=== PATIENT | male | born 1965 | race Caucasian/White ===

== ENCOUNTER → 2016-08-02 | Outpatient (REF) | payer BC ==
[2016-08-02 17:33] LABS: BASO % 0.5 % (0.0-1.0); EOS # 0.1 K/mm3 (0.0-0.50); EOS % 1.6 % (0.0-3.0); LARGE UNSTAINED CELL # 0.1 K/mm3 (0.0-0.4); LARGE UNSTAINED CELL % 0.9 % (0.0-4.0); LYMPH # 1.3 K/mm3 (1.5-4.5); LYMPH % 17.6 % (24.0-44.0); MEAN CORPUSCULAR HGB CONC 34.9 g/dl (32.0-36.5); MONO # 0.4 K/mm3 (0.0-0.8); MONO % 4.9 % (0.0-5.0); NEUTROPHILS # 5.3 K/mm3 (1.8-7.7); NEUTROPHILS % 74.6 % (36.0-66.0); PLATELET COUNT, AUTOMATED 269 k/mm3 (150-450); RED CELL DISTRIBUTION WIDTH 12.5 % (11.5-14.5); WHITE BLOOD COUNT 7.1 K/mm3 (4.0-10.0)
[2016-08-02 18:56] LABS: ALBUMIN 4.4 GM/DL (3.2-5.2); PERCENT SATURATION 25.1 % (19.7-37.4)
== END ==
LOC: M LABDRAWC 16:35
PROVIDERS: ATTEND Orthopaedic Surgery
DX: Z01.818 Encounter for other preprocedural examination (principal); M16.11 Unilateral primary osteoarthritis, right hip; M25.551 Pain in right hip

== ENCOUNTER → 2018-08-31 | Outpatient (REF) | payer OTHER | LOC: M SFHCCLAY 11:14 | PROVIDERS: ATTEND Family Medicine | DX: K92.1 Melena (principal); M25.571 Pain in right ankle and joints of right foot ==

== ENCOUNTER → 2018-09-28 | Outpatient (REF) | payer OTHER ==
[2018-09-28 13:36] LABS: ALBUMIN 4.5 GM/DL (3.2-5.2); ALT/SGPT 38 U/L (12-78); BILIRUBIN,TOTAL 0.5 MG/DL (0.2-1.0); BLOOD UREA NITROGEN 23 MG/DL (7-18); CALCIUM LEVEL 9.1 MG/DL (8.5-10.1); CARBON DIOXIDE LEVEL 26 MEQ/L (21-32); CHLORIDE LEVEL 103 MEQ/L (98-107); CHOLESTEROL LEVEL 261 MG/DL (<200); CHOLESTEROL RISK RATIO 3.625 (<5); CREATININE FOR GFR 1.04 MG/DL (0.70-1.30); GLOMERULAR FILTRATION RATE > 60.0 (>56); GLUCOSE, FASTING 94 MG/DL (70-100); HDL CHOLESTEROL 72 MG/DL (>40); LDL CHOLESTEROL 166 MG/DL (<100); NON-HDL-C 189 MG/DL; POTASSIUM SERUM 4.4 MEQ/L (3.5-5.1); SODIUM LEVEL 137 MEQ/L (136-145); TOTAL PROTEIN 7.6 GM/DL (6.4-8.2); TRIGLYCERIDES LEVEL 115 MG/DL (<150)
== END ==
LOC: M SFHCCLAY 08:04
PROVIDERS: ATTEND Family Medicine
DX: R39.198 Other difficulties with micturition (principal); Z13.220 Encounter for screening for lipoid disorders; Z83.3 Family history of diabetes mellitus; Z13.1 Encounter for screening for diabetes mellitus

== ENCOUNTER → 2020-06-22 | Outpatient (CLI) | payer SELFPAY | LOC: M LABSMTC 11:07 | PROVIDERS: ATTEND Pediatrics | DX: Z20.828 Contact with and (suspected) exposure to other viral communicable diseases (principal) ==

== ENCOUNTER → 2020-07-20 | Outpatient (CLI) | payer SELFPAY | LOC: M LABSMTC 12:40 | PROVIDERS: ATTEND Pediatrics | DX: Z20.828 Contact with and (suspected) exposure to other viral communicable diseases (principal) ==

== ENCOUNTER → 2020-10-12 | Outpatient (REF) | payer BC ==
[2020-10-12 11:36] LABS: BASO # 0.1 10^3/uL (0.0-0.2); BASO % 0.9 % (0.0-1.0); EOS # 0.4 10^3/uL (0.0-0.5); EOS % 6.6 % (0.0-3.0); HEMATOCRIT 47.4 % (42.0-52.0); LYMPH # 1.7 10^3/uL (1.5-5.0); LYMPH % 26.9 % (24.0-44.0); MEAN CORPUSCULAR HEMOGLOBIN 30.7 pg (27.0-33.0); MEAN CORPUSCULAR HGB CONC 33.8 g/dl (32.0-36.5); MEAN CORPUSCULAR VOLUME 90.8 fl (80.0-96.0); MONO # 0.7 10^3/uL (0.0-0.8); NEUTROPHILS # 3.6 10^3/uL (1.5-8.5); NEUTROPHILS % 55.3 % (36.0-66.0); PLATELET COUNT, AUTOMATED 241 10^3/uL (150-450); RED BLOOD COUNT 5.22 10^6/uL (4.30-6.10); WHITE BLOOD COUNT 6.5 10^3/uL (4.0-10.0)
[2020-10-12 12:22] LABS: BLOOD UREA NITROGEN 26 MG/DL (7-18); CALCIUM LEVEL 9.5 MG/DL (8.5-10.1); CARBON DIOXIDE LEVEL 31 MEQ/L (21-32); CHLORIDE LEVEL 106 MEQ/L (98-107); CHOLESTEROL LEVEL 280 MG/DL (<200); CHOLESTEROL RISK RATIO 3.684 (<5); GLOMERULAR FILTRATION RATE > 60.0 (>56); GLUCOSE, FASTING 110 MG/DL (70-100); HDL CHOLESTEROL 76 MG/DL (>40); LDL CHOLESTEROL 173 MG/DL (<100); NON-HDL-C 204 MG/DL; POTASSIUM SERUM 4.3 MEQ/L (3.5-5.1); SODIUM LEVEL 140 MEQ/L (136-145); TRIGLYCERIDES LEVEL 153 MG/DL (<150)
== END ==
LOC: M SFHCCLAY 08:07
PROVIDERS: ATTEND Family Medicine
DX: Z00.00 Encounter for general adult medical examination without abnormal findings (principal); N40.0 Benign prostatic hyperplasia without lower urinary tract symptoms; Z12.5 Encounter for screening for malignant neoplasm of prostate; R59.1 Generalized enlarged lymph nodes; Z13.1 Encounter for screening for diabetes mellitus; Z83.3 Family history of diabetes mellitus; Z13.220 Encounter for screening for lipoid disorders

== ENCOUNTER → 2021-10-13 | Outpatient (REF) | payer BC ==
[2021-10-13 11:57] LABS: BLOOD UREA NITROGEN 13 MG/DL (7-18); CALCIUM LEVEL 9.4 MG/DL (8.5-10.1); CARBON DIOXIDE LEVEL 31 MEQ/L (21-32); CHLORIDE LEVEL 104 MEQ/L (98-107); CHOLESTEROL LEVEL 250 MG/DL (<200); CHOLESTEROL RISK RATIO 3.378 (<5); CREATININE FOR GFR 0.92 MG/DL (0.70-1.30); GLOMERULAR FILTRATION RATE > 60.0 (>56); GLUCOSE, FASTING 101 MG/DL (70-100); HDL CHOLESTEROL 74 MG/DL (>40); LDL CHOLESTEROL 141 MG/DL (<100); NON-HDL-C 176 MG/DL; SODIUM LEVEL 138 MEQ/L (136-145); TRIGLYCERIDES LEVEL 177 MG/DL (<150)
[2021-10-13 15:48] LABS: HEMOGLOBIN A1c 5.2 %
== END ==
LOC: M SFHCCLAY 07:56
PROVIDERS: ATTEND Family Medicine
DX: Z00.00 Encounter for general adult medical examination without abnormal findings (principal); Z83.3 Family history of diabetes mellitus; R73.01 Impaired fasting glucose; R03.0 Elevated blood-pressure reading, without diagnosis of hypertension; E78.5 Hyperlipidemia, unspecified; N40.0 Benign prostatic hyperplasia without lower urinary tract symptoms; Z12.5 Encounter for screening for malignant neoplasm of prostate

== ENCOUNTER → 2022-02-25 | Outpatient (CLI) | payer BC | LOC: M SLEEP 20:00 | PROVIDERS: ATTEND Physician Assistant | DX: G47.33 Obstructive sleep apnea (adult) (pediatric) (principal) ==

== ENCOUNTER → 2022-04-19 | Outpatient (REF) | payer BC | LOC: M SFHCCLAY 07:23 | PROVIDERS: ATTEND Physician Assistant | DX: R97.20 Elevated prostate specific antigen [PSA] (principal) ==

== ENCOUNTER → 2022-09-27 | Outpatient (REF) | payer BC, MEDICAID ==
[2022-09-27 18:10] LABS: HEMOGLOBIN A1c 5.5 % (4.0-6.0)
[2022-09-27 18:27] LABS: BLOOD UREA NITROGEN 17 MG/DL (9-23); CALCIUM LEVEL 9.5 MG/DL (8.5-10.1); CARBON DIOXIDE LEVEL 30 MMOL/L (20-31); CHLORIDE LEVEL 103 MMOL/L (98-107); CHOLESTEROL LEVEL 245 MG/DL (<200); CHOLESTEROL RISK RATIO 3.73 (<5); CREATININE FOR GFR 0.78 MG/DL (0.70-1.30); GLOMERULAR FILTRATION RATE > 60.0 (>56); GLUCOSE, FASTING 101 MG/DL (60-100); HDL CHOLESTEROL 65.6 MG/DL (>40); NON-HDL-C 179.4 MG/DL; POTASSIUM SERUM 4.7 MMOL/L (3.5-5.1); SODIUM LEVEL 138 MMOL/L (136-145); TRIGLYCERIDES LEVEL 87 MG/DL (<150)
== END ==
LOC: M SFHCCLAY 10:45
PROVIDERS: ATTEND Nurse Practitioner Family
DX: E78.5 Hyperlipidemia, unspecified (principal); R73.01 Impaired fasting glucose; G47.33 Obstructive sleep apnea (adult) (pediatric)

== ENCOUNTER → 2022-11-04 | Outpatient (REF) | payer BC, MEDICAID | LOC: M SFHCCLAY 09:56 | PROVIDERS: ATTEND Physician Assistant | DX: R97.20 Elevated prostate specific antigen [PSA] (principal) ==

== ENCOUNTER → 2023-05-09 | Outpatient (CLI) | payer OTHER | LOC: M CLY 11:09 | PROVIDERS: ATTEND Nurse Practitioner Family | DX: S49.91XA Unspecified injury of right shoulder and upper arm, initial encounter (principal); W18.30XA Fall on same level, unspecified, initial encounter; Y92.009 Unspecified place in unspecified non-institutional (private) residence as the place of occurrence of the external cause ==

== ENCOUNTER → 2023-08-02 | Outpatient (CLI) | payer OTHER | LOC: M CLY 09:20 | PROVIDERS: ATTEND Urology | DX: Z01.818 Encounter for other preprocedural examination (principal); N40.1 Benign prostatic hyperplasia with lower urinary tract symptoms ==

== ENCOUNTER → 2023-08-02 | Outpatient (REF) | payer OTHER ==
[~2023-08-02] MED LIST: ADDE1TAB14 PO; ATOR1TAB21 PO; CIAL5TAB PO; CIPR-249 PO; CYCL5TAB PO; IBUP200C89 PO; OXYB-54 PO
[2023-08-02 12:10] LABS: HEMATOCRIT 41.8 % (42.0-52.0); HEMOGLOBIN 13.9 g/dl (13.5-17.5); MEAN CORPUSCULAR HEMOGLOBIN 30.8 pg (27.0-33.0); MEAN CORPUSCULAR HGB CONC 33.3 g/dl (32.0-36.5); MEAN CORPUSCULAR VOLUME 92.5 fl (80.0-96.0); PLATELET COUNT, AUTOMATED 229 10^3/uL (150-450); RED BLOOD COUNT 4.52 10^6/uL (4.30-6.10); WHITE BLOOD COUNT 7.2 10^3/uL (4.0-10.0)
[2023-08-02 12:11] LABS: BLOOD UREA NITROGEN 20 MG/DL (9-23); CALCIUM LEVEL 9.3 MG/DL (8.5-10.1); CARBON DIOXIDE LEVEL 30 MMOL/L (20-31); CHLORIDE LEVEL 104 MMOL/L (98-107); CREATININE FOR GFR 0.95 MG/DL (0.70-1.30); GLOMERULAR FILTRATION RATE > 60.0 (>56); GLUCOSE, FASTING 98 MG/DL (60-100); POTASSIUM SERUM 4.1 MMOL/L (3.5-5.1); SODIUM LEVEL 138 MMOL/L (136-145)
[2023-08-02 12:22] LABS: INR 1.03; PROTHROMBIN TIME 13.2 SECONDS (12.5-14.5)
[2023-08-02 12:23] LABS: PARTIAL THROMBOPLASTIN TIME 27.4 SECONDS (24.8-34.2)
== END ==
LOC: M LABSMT 09:18
PROVIDERS: ATTEND Urology
DX: N40.1 Benign prostatic hyperplasia with lower urinary tract symptoms (principal); Z01.818 Encounter for other preprocedural examination; N39.0 Urinary tract infection, site not specified

== ENCOUNTER → 2023-08-04 | Outpatient (REF) | payer OTHER ==
[~2023-08-04] MED LIST changes: -CIPR-249 PO
== END ==
LOC: M SFHCCLAY 11:17
PROVIDERS: ATTEND Physician Assistant
DX: Z01.818 Encounter for other preprocedural examination (principal)

== ENCOUNTER 2023-08-14 13:05 | Day surgery (SDC) | payer OTHER ==
[~2023-08-14] VITALS: Ht 180.3 cm; Wt 89.5 kg
[~2023-08-14 13:05] MED LIST changes: +KETOROLAC 60MG 2ML VIAL As Ordered ONE; +LIDOCAINE 2% 100MG/5ML SDV (FOR ANES.) As Ordered ONE; +MIDAZOLAM INJ 2MG/2ML VIAL As Ordered ONE; +ONDANSETRON 4MG 2ML VIAL As Ordered ONE; +ceFAZolin SOD 2 GM in IV 1 EA IV ONE; +fentaNYL 100 MCG/2 ML INJECTION As Ordered ONE; +propofoL 200 MG/20 ML VIAL As Ordered ONE
[2023-08-14] MEDS ORDERED: LR 1,000 ML IV SCH (13:25)
[2023-08-14] MEDS ORDERED: ACETAMINOPHEN 1000MG 100ML IV BAG As Ordered ONE (15:10)
[2023-08-14] MEDS ORDERED: HYDROmorphone HCL 2MG/ML 1ML VIAL As Ordered ONE (15:31)
[2023-08-14] MEDS ORDERED: ePHEDrine SULFATE 25 MG/5 ML(5MG/ML) SYRINGE As Ordered ONE (15:34)
[2023-08-14] MEDS ORDERED: FUROSEMIDE 100MG/10ML VIAL As Ordered ONE (16:19)
[2023-08-14] MEDS ORDERED: diphenhydrAMINE 50MG/ML VIAL IV PRN (16:55)
[2023-08-14] MEDS ORDERED: METOCLOPRAMIDE INJ 10MG/2ML VIAL IV PRN (16:55)
[2023-08-14] MEDS ORDERED: MORPHINE 2 MG/ML 1ML VIAL IV PRN (16:55)
[2023-08-14] MEDS ORDERED: oxyCODONE 5MG TAB PO PRN (16:55)
[2023-08-14] MEDS ORDERED: MEPERIDINE 25 MG/ML 1ML VIAL IV PRN (16:55)
[2023-08-14] MEDS ORDERED: ONDANSETRON 4MG 2ML VIAL IV PRN (16:55)
[2023-08-14] MEDS ORDERED: CIPR-249 PO (17:05)
[2023-08-14] MEDS ORDERED: ACETAMINOPHEN TAB 650MG DOSE (2X325MG) PO PRN (18:15)
[2023-08-14 18:24] VITALS: BP 142/86; TEMP 97.9; O2SAT 99
== END 2023-08-14 18:42 | disposition home or self-care (01) ==
LOC: M SDC 13:05
PROVIDERS: ATTEND Urology
DX: N40.1 Benign prostatic hyperplasia with lower urinary tract symptoms (principal); R35.0 Frequency of micturition; E78.5 Hyperlipidemia, unspecified; Z79.899 Other long term (current) drug therapy; Z90.49 Acquired absence of other specified parts of digestive tract
CPT/HCPCS: 52648; J0131; J0690; J1100; J1170; J1885; J1940; J2250; J2405; J3010

== ENCOUNTER → 2023-08-29 | Outpatient (REF) | payer BC ==
[~2023-08-29] MED LIST changes: +CIPR-249 PO; -KETOROLAC 60MG 2ML VIAL As Ordered ONE; -LIDOCAINE 2% 100MG/5ML SDV (FOR ANES.) As Ordered ONE; -MIDAZOLAM INJ 2MG/2ML VIAL As Ordered ONE; -ONDANSETRON 4MG 2ML VIAL As Ordered ONE; -ceFAZolin SOD 2 GM in IV 1 EA IV ONE; -fentaNYL 100 MCG/2 ML INJECTION As Ordered ONE; -propofoL 200 MG/20 ML VIAL As Ordered ONE
[2023-08-29 18:11] LABS: APPEARANCE, URINE CLEAR (CLEAR); BACTERIA, URINE AUTO NEGATIVE (NEGATIVE); BILIRUBIN, URINE AUTO NEGATIVE (NEGATIVE); BLOOD, URINE BLOOD 3+ (NEGATIVE); COLOR, URINE STRAW (YELLOW); GLUCOSE, URINE (UA) AUTO NEGATIVE (NEGATIVE); KETONE, URINE AUTO NEGATIVE (NEGATIVE); LEUKOCYTE ESTERASE, URINE AUTO TRACE (NEGATIVE); NITRITE, URINE AUTO NEGATIVE (NEGATIVE); PROTEIN, URINE AUTO NEGATIVE (NEGATIVE); RBC, URINE AUTO 11 /HPF (0-3); SPECIFIC GRAVITY URINE AUTO 1.004 (1.002-1.035); SQUAMOUS EPITHELIAL CELL UR AU 0 /HPF (0-6); UROBILINOGEN, URINE AUTO 0.2 mg/dL (0.0-2.0); WBC, URINE AUTO 4 /HPF (0-3)
== END ==
LOC: M SFHCCLAY 12:14
PROVIDERS: ATTEND Physician Assistant
DX: R30.0 Dysuria (principal)

== ENCOUNTER → 2023-10-27 | Outpatient (REF) | payer BC ==
[2023-10-27 18:06] LABS: HEMOGLOBIN A1c 5.3 % (4.0-6.0)
[2023-10-27 18:18] LABS: PROSTATIC SPECIFIC AG MONITOR 0.64 NG/ML (< 4.00)
[2023-10-27 18:23] LABS: ALBUMIN 4.2 G/DL (3.2-5.2); ALKALINE PHOSPHATASE 73 U/L (46-116); ALT/SGPT 61 U/L (7.0-40); AST/SGOT 34 U/L (<34); BILIRUBIN,TOTAL 0.9 MG/DL (0.3-1.2); BLOOD UREA NITROGEN 20 MG/DL (9-23); CALCIUM LEVEL 9.4 MG/DL (8.5-10.1); CARBON DIOXIDE LEVEL 28 MMOL/L (20-31); CHLORIDE LEVEL 105 MMOL/L (98-107); CHOLESTEROL LEVEL 179 MG/DL (<200); CHOLESTEROL RISK RATIO 2.83 (<5); CREATININE FOR GFR 0.86 MG/DL (0.70-1.30); GLOMERULAR FILTRATION RATE > 60.0 (>56); GLUCOSE, FASTING 91 MG/DL (60-100); HDL CHOLESTEROL 63.2 MG/DL (>40); NON-HDL-C 115.8 MG/DL; POTASSIUM SERUM 4.6 MMOL/L (3.5-5.1); SODIUM LEVEL 141 MMOL/L (136-145); TOTAL PROTEIN 6.8 G/DL (5.7-8.2); TRIGLYCERIDES LEVEL 129 MG/DL (<150)
== END ==
LOC: M SFHCCLAY 09:51
PROVIDERS: ATTEND Nurse Practitioner Family
DX: N40.1 Benign prostatic hyperplasia with lower urinary tract symptoms (principal); R73.01 Impaired fasting glucose; E78.5 Hyperlipidemia, unspecified; F90.0 Attention-deficit hyperactivity disorder, predominantly inattentive type

== ENCOUNTER → 2024-06-06 | Outpatient (REF) | payer BC ==
[~2024-06-06] MED LIST changes: -CYCL5TAB PO; +CYCL5TAB4 PO
[2024-06-06 12:00] LABS: BASO % 0.7 % (0.0-1.0); EOS # 0.1 10^3/uL (0.0-0.5); HEMATOCRIT 41.6 % (42.0-52.0); HEMOGLOBIN 14.5 g/dl (13.5-17.5); LYMPH # 1.6 10^3/uL (1.5-5.0); LYMPH % 26.9 % (24.0-44.0); MEAN CORPUSCULAR HEMOGLOBIN 31.5 pg (27.0-33.0); MEAN CORPUSCULAR HGB CONC 34.9 g/dl (32.0-36.5); MEAN CORPUSCULAR VOLUME 90.4 fl (80.0-96.0); MONO # 0.5 10^3/uL (0.0-0.8); MONO % 9.2 % (2.0-8.0); NEUTROPHILS # 3.6 10^3/uL (1.5-8.5); NEUTROPHILS % 60.9 % (36.0-66.0); PLATELET COUNT, AUTOMATED 221 10^3/uL (150-450); WHITE BLOOD COUNT 5.9 10^3/uL (4.0-10.0)
[2024-06-06 12:12] LABS: INR 0.9; PARTIAL THROMBOPLASTIN TIME 31.3 SECONDS (24.8-34.2); PROTHROMBIN TIME 12.4 SECONDS (12.5-14.5)
[2024-06-06 12:29] LABS: ALKALINE PHOSPHATASE 56 U/L (40-129); ALT/SGPT 51 U/L (7.0-40); AST/SGOT 24 U/L (<34); BILIRUBIN,TOTAL 0.7 MG/DL (0.3-1.2); BLOOD UREA NITROGEN 18 MG/DL (9-23); CARBON DIOXIDE LEVEL 29 MMOL/L (20-31); CHLORIDE LEVEL 104 MMOL/L (98-107); CHOLESTEROL LEVEL 258 MG/DL (<200); CREATININE FOR GFR 0.87 MG/DL (0.70-1.30); GLOMERULAR FILTRATION RATE > 60.0 (>56); GLUCOSE, FASTING 113 MG/DL (60-100); HDL CHOLESTEROL 61.4 MG/DL (>40); LDL CHOLESTEROL 170.6 MG/DL (<100); NON-HDL-C 196.6 MG/DL; PROSTATIC SPECIFIC AG MONITOR 0.62 NG/ML (< 4.00); SODIUM LEVEL 138 MMOL/L (136-145); TOTAL PROTEIN 7.2 G/DL (5.7-8.2); TRIGLYCERIDES LEVEL 130 MG/DL (<150)
[2024-06-06 12:30] LABS: THYROID STIMULATING HORMONE 2.288 uIU/ML (0.55-4.78)
[2024-06-06 12:40] LABS: HEMOGLOBIN A1c 5.2 % (4.0-6.0)
== END ==
LOC: M SFHCCLAY 08:58
PROVIDERS: ATTEND Nurse Practitioner Family
DX: Z01.818 Encounter for other preprocedural examination (principal); N40.1 Benign prostatic hyperplasia with lower urinary tract symptoms; R73.01 Impaired fasting glucose; E78.5 Hyperlipidemia, unspecified; F90.0 Attention-deficit hyperactivity disorder, predominantly inattentive type; G47.33 Obstructive sleep apnea (adult) (pediatric); R97.20 Elevated prostate specific antigen [PSA]

== ENCOUNTER → 2024-06-17 | Outpatient (CLI) | payer BC | LOC: M CARPUL 16:53 | PROVIDERS: ATTEND Nurse Practitioner Family | DX: I45.10 Unspecified right bundle-branch block (principal) ==